=== PATIENT | female | born 1965 | race Two or more races ===

== ENCOUNTER 2019-10-17 01:55 | Emergency (ER) | payer OTHER ==
[~2019-10-17] VITALS: Ht 162.6 cm; Wt 75.3 kg
[2019-10-17] MEDS ORDERED: [UNRECOGNIZED DRUG - OTHER] (02:22)
[2019-10-17] MEDS ORDERED: AZITHROMYCIN250 MG PO (02:22)
[2019-10-17] MEDS ORDERED: PRED (02:22)
[2019-10-17] MEDS ORDERED: LIDOCA (02:22)
[2019-10-17] MEDS ORDERED: PROMETH-CODEIN 65 ML PO (04:02)
== END 2019-10-17 04:09 | disposition home or self-care (01) ==
LOC: ER 01:55
DX: R05 Cough (principal)